=== PATIENT | male | born 1980 | race Caucasian/White ===

== ENCOUNTER 2019-11-28 17:10 | Emergency (ER) | payer OTHER ==
[~2019-11-28] VITALS: Ht 190.5 cm; Wt 154.2 kg
[2019-11-28] MEDS ORDERED: LISINOPRIL2.5 MG PO (17:17)
[2019-11-28] MEDS ORDERED: LIPITOR10 MG PO (17:17)
[2019-11-28 18:25] VITALS: BP 154/106
== END 2019-11-28 18:26 | disposition home or self-care (01) ==
LOC: M.ERS 17:10
DX: S61.210A Laceration without foreign body of right index finger without damage to nail, initial encounter (principal); W26.8XXA Contact with other sharp object(s), not elsewhere classified, initial encounter; Y93.89 Activity, other specified; Y92.89 Other specified places as the place of occurrence of the external cause; Y99.8 Other external cause status